=== PATIENT | female | born 1955 | race Caucasian/White ===

== ENCOUNTER 2018-03-14 06:44 | Day surgery (SDC) | payer BC ==
[~2018-03-14 06:44] MED LIST: ACETAMINOPHEN 1,000 MG/100 ML BTL IV ONE; CLINDAMYCIN PHOS/D5W 900MG 900 MG/50 ML BAG IVPB ONE
[2018-03-14] MEDS ORDERED: DEXAMETHASONE 4 MG/ML 1ML VIAL IVP ONE (06:45)
[2018-03-14] MEDS ORDERED: MORPHINE SULFATE PF 10MG/10ML VIAL IV ONE (06:45)
[2018-03-14] MEDS ORDERED: SEVOFLURANE 250 ML INH ONE (06:45)
[2018-03-14] MEDS ORDERED: LIDOCAINE 2% MDV (20MG/ML) 20ML VIAL IV ONE (06:45)
[2018-03-14] MEDS ORDERED: BUPIVACAINE 0.5% W/EPI MPF 30 ML VIAL IVP ONE (06:45)
[2018-03-14] MEDS ORDERED: METHYLPREDNISOLONE 40MG/VIAL IM ONE (06:45)
[2018-03-14] MEDS ORDERED: BUPIVACAINE LIPOSOME/PF 133MG/10ML VIAL IV ONE (06:45)
[2018-03-14] MEDS ORDERED: PROPOFOL 10 MG/ML VIAL IV ONE (06:45)
[2018-03-14] MEDS ORDERED: ONDANSETRON HCL IV 4 MG/2 ML VIAL IVP ONE (06:45)
[2018-03-14] MEDS ORDERED: MIDAZOLAM HCL 2MG/2ML VIAL IV ONE (06:45)
--- NOTE | 2018-03-15 09:00 | Operative Note ---
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 POSTOPERATIVE DIAGNOSES: 1. Complex glenohumeral labral tear. 2. Severe external impingement of the right shoulder with calcific bursitis. 3. Arthrosis of the right distal clavicle. OPERATION: 1. Right shoulder arthroscopy with interarticular debridement. 2. Right shoulder open acromioplasty, CA ligament resection, and subacromial decompression and debridement. 3. Right shoulder distal clavicle resection. Anesthesia: General. PREPARATION: Chloraprep. INDIVIDUAL CONSIDERATIONS: None. PROCEDURE: The patient was taken to the operating room and placed supine on the operating room table. She had a successful induction of a general anesthetic. She was then placed in a semi-sitting beach chair position and her right arm and shoulder were prepped and draped in the usual fashion. The patient had a posterior portal identified for arthroscopy. Prior to this, examination under anesthesia showed full passive motion with no instability. After infiltrating the skin, an 18 gauge spinal needle was placed in the joint and the joint was inflated with normal saline with a 60 mL syringe. A stab wound was made and a blunt tipped trocar for the scope was placed in the joint and the joint was inflated with normal saline. The patient had an obvious complex split tear of the labrum superiorly, extending posteriorly. This was debrided with a shaver. The subscap tendon was normal. The long head was normal. The glenohumeral joint was normal. No real significant synovitis inferiorly, some anteriorly. The undersurface of the rotator cuff looked good. After irrigation, the portals were closed with gayle. The patient had an anterior approach of the subacromial space. The skin was again infiltrated with 0.5% Marcaine with epinephrine prior. Sharp dissection carried down through the skin and subcutaneous tissues. Small veins were coagulated with the Bovie. The deltoid was split anteriorly. Care was taken not to split it more than about 4 cm distal to the anterior tip of the acromion to prevent injury to the axillary nerve. Once in the subacromial space, I went ahead and detached the anterior deltoid off of the anterior aspect of the acromion subperiosteally, over the top of the intact CA ligament and off the anterior aspect of the degenerated distal clavicle. The CA ligament was resected with the Bovie. The distal clavicle was resected with an oscillating saw. She had spurs at the AC joint, and spurs extending in the subacromial space anteriorly. An anterior acromioplasty was then performed, taking about 6 or 7 mm and then tapering to edge posterior medially to include the spurs at the AC joint. The other surfaces then smoothed off with a rasp. The patient had extremely thick bursa in the areas of calcification within the bursa, and this was all debrided out, but the cup in and of itself looked good. After irrigation, the deltoid was reattached to the remaining acromion with multiple interrupted 2 Vicryl, going directly to the bony acromion. The periosteal cup and distal clavicle was closed with running 2 Vicryl. The anterior deltoid interval was closed with running 1 Vicryl. The subq was closed with 2-0 + Vicryl, the skin was closed with running 3-0 Stratafix. I then placed an 18 gauge spinal needle into the subacromial space and injected about 15 mL of 0.5% Marcaine with epinephrine, along with 10 mg of morphine and 40 mg of Depo-Medrol and a sterile, bulky compressive dressing and a sling were applied. The patient tolerated the procedure well. The needle and sponge counts were correct. Estimated blood loss was minimal. She was taken back to recovery in good condition. There were no complications. [id number]
== END 2018-03-14 11:25 | disposition home or self-care (01) ==
LOC: SUR 06:44
PROVIDERS: ATTEND Orthopaedic Surgery
DX: S43.431A Superior glenoid labrum lesion of right shoulder, initial encounter (principal); M75.41 Impingement syndrome of right shoulder; M19.011 Primary osteoarthritis, right shoulder; I10 Essential (primary) hypertension; E11.9 Type 2 diabetes mellitus without complications; Z79.4 Long term (current) use of insulin; G47.33 Obstructive sleep apnea (adult) (pediatric)
CPT/HCPCS: 29823; 23130; 23415; 01630; 64415; 36416; 82948; J2405; J3490; C9290; 76942; J1030